=== PATIENT | male | born 1980 | race African-American/Black ===

== ENCOUNTER 2019-03-25 20:41 | Emergency (ER) | payer SELFPAY ==
[~2019-03-25] VITALS: Ht 180.3 cm; Wt 72.6 kg
[2019-03-25] MEDS ORDERED: MULTIVIT INFUSN,ADULT 4,VIT K 10 ML, THIAMINE INJ 100 MG, FOLIC ACID INJ 1 MG in IV NOR... IV ONE (21:30)
[2019-03-25] MEDS ORDERED: LIDOCAINE 1% Multi-Dose 20 ML VIAL. INJ ONE (21:30)
--- NOTE | 2019-03-25 21:41 | RAD ---
Exam: Bilateral hands 3 views INDICATION: Laceration TECHNIQUE: Frontal, lateral and oblique views of the right and left hand Comparisons: None FINDINGS: Left hand: Bone mineralization and development are normal. No acute or healed fractures. Soft tissues are unremarkable. Joint spaces are well-maintained. Right hand: Soft tissue irregularity along the palmar aspect of the metatarsal heads. Evaluation of the fine osseous detail is limited secondary to overlying bandages. No acute or healed fractures are seen. Joint spaces are well-maintained. IMPRESSION: 1. Soft tissue irregularity along the palmar aspect of the right hand at the level of the metatarsal heads likely relating to laceration. No underlying osseous abnormality or radiopaque foreign body is identified. Limitations as above. 2. No acute osseous abnormality of the left hand. Electronically signed by: Dyana Queen MD (03/25/2019 9:38 PM) [facility]
[2019-03-25 21:42] LABS: BILIRUBIN,URINE NEGATIVE (NEG); CLARITY,URINE CLEAR; COLOR,URINE YELLOW; NITRITE,URINE NEGATIVE (NEG); PROTEIN,URINE NEGATIVE (NEG-TRACE); UROBILINOGEN,URINE 0.2 mg/dL (0.2 mg/dL)
[2019-03-25 21:48] LABS: HYALINE CASTS, URINE MANY /HPF; SQUAMOUS EPITHELIAL CELL,UR OCC /LPF
[2019-03-25 21:50] LABS: BACTERIA,URINE 0 /HPF (0-FEW); RBC,URINE 0 /HPF (0-2)
[2019-03-25 21:51] LABS: BARBITURATES NEG (NEG); BENZODIAZEPINES NEG (NEG); CANNABINOIDS POS (NEG); COCAINE NEG (NEG); METHADONE NEG (NEG); OPIATES NEG (NEG); PHENCYCLIDINE POS (NEG)
[2019-03-25 21:52] LABS: AMPHETAMINE/METHAMPHETAMINE NEG (NEG)
[2019-03-25 21:55] LABS: BASO # 0.1 x10^3/uL (0.0-0.2); BASO % 1 % (0-3); EOS % 0 % (0-3); HEMATOCRIT 37.4 % (39.0-53.0); HEMOGLOBIN 12.9 g/dL (13.0-17.5); LYMPH % 17 % (24-48); MEAN CORPUSCULAR HEMOGLOBIN 29 pg (25-35); MEAN CORPUSCULAR HGB CONC 34 g/dL (31-37); MEAN CORPUSCULAR VOLUME 85 fL (79-100); MONO # 1.1 x10^3/uL (0.0-1.1); MONO % 9 % (0-9); NEUT # 8.7 x10^3/uL (1.8-7.7); NEUT % 73 % (31-73); PLATELET COUNT 201 x10^3/uL (140-400); RED CELL DISTRIBUTION WIDTH 14.7 % (11.5-14.5); WHITE BLOOD COUNT 11.9 x10^3/uL (4.0-11.0)
[2019-03-25 22:05] LABS: CALCIUM 8.5 mg/dL (8.5-10.1); CREATININE 1.4 mg/dL (0.7-1.3); POTASSIUM 3.9 mmol/L (3.5-5.1)
[2019-03-25 22:09] LABS: ACETAMIN < 2 mcg/ml (10-30); ETHANOL 56 mg/dL (0-10); SALIC 4.9 mg/dL (2.8-20.0)
[2019-03-25 22:11] LABS: ALBUMIN 3.8 g/dL (3.4-5.0); ALBUMIN/GLOBULIN RATIO 1.5 (1.0-1.7); TOTAL BILIRUBIN 0.2 mg/dL (0.2-1.0); TOTAL PROTEIN 6.4 g/dL (6.4-8.2)
--- NOTE | 2019-03-25 22:58 | PHYS DOC ---
Past Medical History Past Medical History: No Pertinent History (JAYNA WAGONER APRN) Past Surgical History: Other Additional Past Surgical Histo: R KNEE AND HERNIA (JAYNA WAGONER APRN) Alcohol Use: Heavy Drug Use: Marijuana (JAYNA WAGONER APRN) Adult General Chief Complaint Chief Complaint: ALCOHOL INTOXICATION HPI HPI Patient is a 38 year old male who presents with bilateral hand lacerations. Patient arrives in the ED via EMS. He is intoxicated. He states he has been drinking Gin and smoking marijuana. He states he does not know what happened to cause him the lacerations but somebody was in the house when this lacerations occurred and the person left before the EMS got there. He will not give any further information. (JAYNA WAGONER APRN) Review of Systems Review of Systems Constitutional: Denies fever or chills [] Eyes: Denies change in visual acuity, redness, or eye pain [] HENT: Denies nasal congestion or sore throat [] Respiratory: Denies cough or shortness of breath [] Cardiovascular: No additional information not addressed in HPI [] GI: Denies abdominal pain, nausea, vomiting, bloody stools or diarrhea [] : Denies dysuria or hematuria [] Musculoskeletal: Denies back pain or joint pain [] Integument: Reports bilateral hand lacerations Neurologic: Denies headache, focal weakness or sensory changes [] Psych: Reports alcohol intoxication All other systems were reviewed and found to be within normal limits, except as documented in this note. (JAYNA WAGONER APRN) Current Medications Current Medications Current Medications Medications (Trade) Dose Ordered Sig/Nayely Start Time Stop Time Status Last Admin Dose Admin Diphtheria/ Tetanus/Acell Pertussis (Boostrix) 0.5 ml ONCE ONCE 03/25/19 23:30 03/25/19 23:31 DC 03/25/19 23:48 0.5 ML Lidocaine HCl (Lidocaine 1% 20ml Vial) 20 ml 1X ONCE 03/26/19 00:00 03/26/19 00:01 DC 03/25/19 23:54 20 ML Multivitamins 10 ml/Thiamine HCl 100 mg/Folic Acid 1 mg/Sodium Chloride 1,011.2 ml @ 1,000.088 mls/hr 1X ONCE 03/25/19 21:30 03/25/19 22:30 DC 03/25/19 21:17 1,000.088 MLS/HR (PATO MAGAÑA DO) Allergies Allergies Allergies Coded Allergies Type Severity Reaction Last Updated Verified No Known Drug Allergies 03/25/19 No (PATO MAGAÑA DO) Physical Exam Physical Exam Constitutional: Well developed, well nourished, no acute distress, non-toxic appearance. [] HENT: Normocephalic, atraumatic, bilateral external ears normal, oropharynx moist, no oral exudates, nose normal. [] Eyes: PERRLA, EOMI, conjunctiva normal, no discharge. [] Neck: Normal range of motion, no tenderness, supple, no stridor. [] Cardiovascular:Heart rate regular rhythm, no murmur [] Lungs & Thorax: Bilateral breath sounds clear to auscultation [] Abdomen: Bowel sounds normal, soft, no tenderness, no masses, no pulsatile masses. [] Skin: Warm, dry, right hand with two lacerations one on the right lateral hand approx. 5 cm, the other on the mid palm of the same hand approx. 8 cm, no obvious tendon involvement. Ful ROM to the right hand and fingers. Adequate radial, medial and ulnar sensation to the right hand. +2 right radial pulse. Left palmar eminence with a laceration approximately 4 cm long. There is no tendon involvement. Ful ROM to the left hand and fingers. Adequate radial, medial and ulnar sensation to the left hand. +2 left radial pulse. Back: No tenderness, no CVA tenderness. [] Extremities: No tenderness, no cyanosis, no clubbing, ROM intact, no edema. [] Neurologic: Alert and oriented X 3, normal motor function, normal sensory function, no focal deficits noted. [] Psychologic: Appears intoxicated (MUTUNGA,JAYNA WIRE COATING MACHINE OPERATOR) Current Patient Data Vital Signs Vital Signs Date Time Temp Pulse Resp B/P (MAP) Pulse Ox O2 Delivery O2 Flow Rate FiO2 03/26/19 00:30 80 18 121/97 (105) 100 Room Air 03/25/19 20:55 98.9 98.9 (PATO MAGAÑA DO) Lab Values Laboratory Tests Test 03/25/19 21:33 03/25/19 21:40 Urine Collection Type Unknown Urine Color Yellow Urine Clarity Clear Urine pH 5.0 Urine Specific [place] 1.015 Urine Protein Negative mg/dL (NEG-TRACE) Urine Glucose (UA) Negative mg/dL (NEG) Urine Ketones (Stick) Negative mg/dL (NEG) Urine Blood Negative (NEG) Urine Nitrite Negative (NEG) Urine Bilirubin Negative (NEG) Urine Urobilinogen Dipstick 0.2 mg/dL (0.2 mg/dL) Urine Leukocyte Esterase Trace (NEG) Urine RBC 0 /HPF (0-2) Urine WBC 5-10 /HPF (0-4) Urine Squamous Epithelial Cells Occ /LPF Urine Bacteria 0 /HPF (0-FEW) Urine Hyaline Casts Many /HPF Urine Mucus Marked /LPF Urine Opiates Screen Neg (NEG) Urine Methadone Screen Neg (NEG) Urine Barbiturates Neg (NEG) Urine Phencyclidine Screen Pos (NEG) Urine Amphetamine/Methamphetamine Neg (NEG) Urine Benzodiazepines Screen Neg (NEG) Urine Cocaine Screen Neg (NEG) Urine Cannabinoids Screen Pos (NEG) Urine Ethyl Alcohol Pos (NEG) White Blood Count 11.9 x10^3/uL (4.0-11.0) H Red Blood Count 4.40 x10^6/uL (4.30-5.70) Hemoglobin 12.9 g/dL (13.0-17.5) L Hematocrit 37.4 % (39.0-53.0) L Mean Corpuscular Volume 85 fL (79-100) Mean Corpuscular Hemoglobin 29 pg (25-35) Mean Corpuscular Hemoglobin Concent 34 g/dL (31-37) Red Cell Distribution Width 14.7 % (11.5-14.5) H Platelet Count 201 x10^3/uL (140-400) Neutrophils (%) (Auto) 73 % (31-73) Lymphocytes (%) (Auto) 17 % (24-48) L Monocytes (%) (Auto) 9 % (0-9) Eosinophils (%) (Auto) 0 % (0-3) Basophils (%) (Auto) 1 % (0-3) Neutrophils # (Auto) 8.7 x10^3/uL (1.8-7.7) H Lymphocytes # (Auto) 2.0 x10^3/uL (1.0-4.8) Monocytes # (Auto) 1.1 x10^3/uL (0.0-1.1) Eosinophils # (Auto) 0.0 x10^3/uL (0.0-0.7) Basophils # (Auto) 0.1 x10^3/uL (0.0-0.2) Sodium Level 144 mmol/L (136-145) Potassium Level 3.9 mmol/L (3.5-5.1) Chloride Level 106 mmol/L (98-107) Carbon Dioxide Level 22 mmol/L (21-32) Anion Gap 16 (6-14) H Blood Urea Nitrogen 12 mg/dL (8-26) Creatinine 1.4 mg/dL (0.7-1.3) H Estimated GFR (Cockcroft-Gault) 69.0 BUN/Creatinine Ratio 9 (6-20) Glucose Level 90 mg/dL (70-99) Calcium Level 8.5 mg/dL (8.5-10.1) Total Bilirubin 0.2 mg/dL (0.2-1.0) Aspartate Amino Transferase (AST) 20 U/L (15-37) Alanine Aminotransferase (ALT) 26 U/L (16-63) Alkaline Phosphatase 70 U/L (46-116) Total Protein 6.4 g/dL (6.4-8.2) Albumin 3.8 g/dL (3.4-5.0) Albumin/Globulin Ratio 1.5 (1.0-1.7) Salicylates Level 4.9 mg/dL (2.8-20.0) Salicylate Last Dose Date Salicylate Last Dose Time Acetaminophen Level < 2 mcg/ml (10-30) L Acetaminophen Last Dose Date Acetaminophen Last Dose Time Ethyl Alcohol Level 56 mg/dL (0-10) H Laboratory Tests 03/25/19 21:40 Laboratory Tests 03/25/19 21:40 (PATO MAGAÑA DO) EKG EKG [] (JAYNA WAGONER APRN) Radiology/Procedures Radiology/Procedures []PROCEDURE: HAND BILAT 3V Exam: Bilateral hands 3 views INDICATION: Laceration TECHNIQUE: Frontal, lateral and oblique views of the right and left hand Comparisons: None FINDINGS: Left hand: Bone mineralization and development are normal. No acute or healed fractures. Soft tissues are unremarkable. Joint spaces are well-maintained. Right hand: Soft tissue irregularity along the palmar aspect of the metatarsal heads. Evaluation of the fine osseous detail is limited secondary to overlying bandages. No acute or healed fractures are seen. Joint spaces are well-maintained. IMPRESSION: 1. Soft tissue irregularity along the palmar aspect of the right hand at the level of the metatarsal heads likely relating to laceration. No underlying osseous abnormality or radiopaque foreign body is identified. Limitations as above. 2. No acute osseous abnormality of the left hand. Electronically signed by: Dyana Grubbs MD (03/25/2019 9:38 PM) [facility] DICTATED and SIGNED BY: DYANA GRUBBS MD DATE: 03/25/192137 Laceration/Wound Repair Wound Location: Right mid palm and right lateral hand Wound's Depth, Shape: Horizontal Wound Length (cm): See physical exam Wound Explored: clean Irrigated w/ Saline (ccs): 1000 Betadine Prep?: Yes Anesthesia: 1% lidocaine Volume Anesthetic (ccs): Approximately 32 mL for both lacerations Wound Repaired With: Palm laceration was repaired with approximately 30 stitches (5 stitches internally), right lateral hand laceration was repaired with 3 stitches internally and 14 stitches externally. Both lacerations were repaired with Vicryl 4.0 and 5.0. The lacerations were covered with nonstick dressing. (JAYNA WAGONER APRN) Course & Med Decision Making Course & Med Decision Making Pertinent Labs and Imaging studies reviewed. (See chart for details) This is a 38-year-old male patient presenting to the ED today with bilateral hand lacerations, patient arrives in the ED intoxicated, does not know how the lacerations occurred. He was home until somebody else in the house when the laceration occurred. Alcohol level 56. Positive for cocaine, marijuana and PCP lacerations were repaired made me as noted in procedures. Wound care instructions and return precautions provided. Tetanus updated. (JAYNA WAGONER APRN) Dragon Disclaimer Dragon Disclaimer This electronic medical record was generated, in whole or in part, using a voice recognition dictation system. (JAYNA WAGONER APRN) Departure Departure Impression: Primary Impression: Hand laceration Additional Impressions: Phencyclidine (PCP) use disorder, mild, abuse Marijuana abuse ETOH abuse Laceration of left hand Disposition: 01 HOME, SELF-CARE Condition: STABLE Referrals: NO PCP (PCP) Follow-up with your doctor in 1-2 weeks as needed Patient Instructions: Alcohol Intoxication, Drug Abuse and Addiction-SportsMed, Laceration Care, Adult Additional Instructions: You have lacerations to right hand that will closed with dissolvable stitches, they will fall off on their own. Keep the areas clean and dry. Apply Neosporin to the laceration site twice a day. Monitor the areas for signs of infection including increased redness, warmth, yellow drainage and return to the ED for occur. Consider getting help for alcohol and drug use Attending Signature Attending Signature I have reviewed the PA/RECREATIONAL LEADER's note and plan of care. I was available for consultation as needed during the patient's visit in the emergency department. I agree with the clinical impression, plan, and disposition. (PATO MAGAÑA DO) Problem Qualifiers Primary Impression: Hand laceration Encounter type: initial encounter Foreign body presence: without foreign body Laterality: right Qualified Codes: S61.411A - Laceration without foreign body of right hand, initial encounter Additional Impressions: Laceration of left hand Encounter type: initial encounter Foreign body presence: without foreign body Qualified Codes: S61.412A - Laceration without foreign body of left hand, initial encounter YANAJAYNA CORNEJO WIRE COATING MACHINE OPERATOR Mar 25, 2019 22:58 PATO MAGAÑA DO Mar 26, 2019 02:07
[2019-03-25] MEDS ORDERED: DIPHTH,PERTUSS(ACELL),TET TOX 0.5 ML DISP.SYRIN. VAX IM ONE (23:30)
[2019-03-26] MEDS ORDERED: LIDOCAINE 1% Multi-Dose 20 ML VIAL. INJ ONE
[2019-03-26 00:30] VITALS: BP 121/97
== END 2019-03-26 00:45 | disposition home or self-care (01) ==
LOC: ER 20:41
DX: S61.412A Laceration without foreign body of left hand, initial encounter (principal); S61.411A Laceration without foreign body of right hand, initial encounter; F12.20 Cannabis dependence, uncomplicated; F16.10 Hallucinogen abuse, uncomplicated; F10.229 Alcohol dependence with intoxication, unspecified; Y90.2 Blood alcohol level of 40-59 mg/100 ml; X58.XXXA Exposure to other specified factors, initial encounter; Y93.89 Activity, other specified; Y92.009 Unspecified place in unspecified non-institutional (private) residence as the place of occurrence of the external cause; Y99.8 Other external cause status
CPT/HCPCS: 12005; 36415; 73130; 80053; 80307; 80329; 81001; 85025; 90471; 90715; 96365; 99285; G0480; J7030

== ENCOUNTER 2021-02-20 13:16 | Emergency (ER) | payer SELFPAY ==
[~2021-02-20] VITALS: Ht 182.9 cm; Wt 73.0 kg
[2021-02-20] MEDS ORDERED: MULTIVIT INFUSN,ADULT 4,VIT K 10 ML, THIAMINE INJ 100 MG, FOLIC ACID INJ 1 MG in IV NOR... IV SCH (13:30)
--- NOTE | 2021-02-20 13:40 | RAD ---
EXAMINATION: Chest radiograph. VIEWS: Single view COMPARISON: None INDICATION:40 years, Male, altered mental status. FINDINGS: Normal cardiomediastinal silhouette. No focal consolidation. No pleural effusion or pneumothorax. No acute osseous process. IMPRESSION: No acute cardiopulmonary process. Electronically signed by: Sai Melgar MD (02/20/2021 1:38 PM) [facility]
--- NOTE | 2021-02-20 13:50 | PHYS DOC ---
Past Medical History Past Medical History: No Pertinent History Past Surgical History: Other Additional Past Surgical Histo: R KNEE AND HERNIA Smoking Status: Current Every Day Smoker Alcohol Use: Heavy Drug Use: Marijuana General Adult EDM: Chief Complaint: ALCOHOL INTOXICATION HPI: HPI: Patient is a 40 year old male who presents with here by EMS from a hotel at the street with altered mental status, alcohol intoxication and drug use. EMS states initially patient was not speaking and very altered to them. Upon arrival patient is alert and oriented and speaking to nurses and laughing. He is calm and cooperative. He states he has been drinking gin today. EMS states that there was "Wet" seen in the hotel room. Patient denies any past medical history. He denies any pain. Review of Systems: Review of Systems: Constitutional: Denies fever or chills. [] Eyes: Denies change in visual acuity. [] HENT: Denies nasal congestion or sore throat. [] Respiratory: Denies cough or shortness of breath. [] Cardiovascular: Denies chest pain or edema. [] GI: Denies abdominal pain, nausea, vomiting, bloody stools or diarrhea. [] : Denies dysuria. [] Musculoskeletal: Denies back pain or joint pain. [] Integument: Denies rash. [] Neurologic: Denies headache, focal weakness or sensory changes. +AMS[] Endocrine: Denies polyuria or polydipsia. [] Lymphatic: Denies swollen glands. [] Psychiatric: Denies depression or anxiety. +Alcohol intoxication [] Heart Score: C/O Chest Pain: N/A HEART Score for Chest Pain: HEART Score for Chest Pain Response (Comments) Value History Slighlty/Non-Suspicious 0 ECG Normal 0 Age < 45 0 Risk Factors 1 or 2 Risk Factors 1 Troponin < Normal Limit 0 Total 1 Risk Factors: Risk Factors: DM, Current or recent (<one month) smoker, HTN, HLP, family history of CAD, obesity. Risk Scores: Score 0 - 3: 2.5% MACE over next 6 weeks - Discharge Home Score 4 - 6: 20.3% MACE over next 6 weeks - Admit for Clinical Observation Score 7 - 10: 72.7% MACE over next 6 weeks - Early Invasive Strategies Current Medications: Current Medications Medications (Trade) Dose Ordered Sig/Nayely Start Time Stop Time Status Last Admin Dose Admin Multivitamins 10 ml/Thiamine HCl 100 mg/Folic Acid 1 mg/Sodium Chloride 1,011.2 ml @ 1,000.088 mls/hr 1X ONCE 02/20/21 14:00 02/20/21 15:00 Sodium Chloride 1,000 ml @ 1,000 mls/hr Q1H 02/20/21 13:30 02/20/21 14:29 Allergies: Allergies: Allergies Coded Allergies Type Severity Reaction Last Updated Verified No Known Drug Allergies 03/25/19 No Physical Exam: PE: Constitutional: Well developed, well nourished, no acute distress, non-toxic appearance. [] HENT: Normocephalic, atraumatic, bilateral external ears normal, oropharynx moist, no oral exudates, nose normal. [] Eyes: PERRLA, EOMI, conjunctiva normal, no discharge. [] Neck: Normal range of motion, no tenderness, supple, no stridor. [] Cardiovascular:Heart rate regular rhythm, no murmur [] Lungs & Thorax: Bilateral breath sounds clear to auscultation [] Abdomen: Bowel sounds normal, soft, no tenderness, no masses, no pulsatile masses. [] Skin: Warm, dry, no erythema, no rash. [] Back: No tenderness, no CVA tenderness. [] Extremities: No tenderness, no cyanosis, no clubbing, ROM intact, no edema. [] Neurologic: Alert and oriented X 3, normal motor function, normal sensory function, no focal deficits noted. + Altered mental status due to alcohol intoxication [] Psychologic: Affect normal, judgement normal, mood normal. [] EKG: EK and read by Dr. Mathis is sinus rhythm and no STEMI [] Radiology/Procedures: Radiology/Procedures: [] Impression: [facility] [address] [place], [place] [id number] IMAGING REPORT Signed PATIENT: ANALISA RENE ACCOUNT: [id number] : 1980 LOCATION: ER AGE: 40 SEX: M EXAM STATUS: PRE ER ORD. PHYSICIAN: SONIA ZAZUETA APRN REASON: ams PROCEDURE: PORTABLE CHEST 1V EXAMINATION: Chest radiograph. VIEWS: Single view COMPARISON: None INDICATION:40 years, Male, altered mental status. FINDINGS: Normal cardiomediastinal silhouette. No focal consolidation. No pleural effusion or pneumothorax. No acute osseous process. IMPRESSION: No acute cardiopulmonary process. Electronically signed by: Inez Melgar MD (02/20/2021 1:38 PM) [facility] DICTATED and SIGNED BY: INEZ MELGAR MD DATE: 02/20/21 [id number] [facility] [address] [place] [address] IMAGING REPORT Signed PATIENT: ANALISA RENE ACCOUNT: [id number] : 1980 LOCATION: ER AGE: 40 SEX: M EXAM STATUS: PRE ER ORD. PHYSICIAN: SONIA ZAZUETA APRN REASON: AMS, etoh PROCEDURE: CT HEAD WO CONTRAST EXAM: Head CT without contrast. HISTORY: Altered mental status. TECHNIQUE: Computed tomographic images of the head were obtained without contrast. *One or more of the following individualized dose reduction techniques were utilized for this examination: 1. Automated exposure control. 2. Adjustment of the mA and/or kV according to patient size. 3. Use of iterative reconstruction technique. COMPARISON: None. FINDINGS: There is no acute or subacute extra-axial or intraparenchymal hemorrhage. There is no mass effect or midline shift. There is no hydrocephalus. The rodriguez-white matter differential pattern is intact. There is a cavum septum pellucidum et vergae. There is a small mucous retention cyst within the sphenoid sinus. There is ethmoid sinus mucosal thickening. The mastoid air cells are clear. There is no suspicious calvarial lesion. IMPRESSION: No acute intracranial findings. Electronically signed by: Marisa Underwood MD (02/20/2021 2:44 PM) [id number] DICTATED and SIGNED BY: MARISA UNDERWOOD MD DATE: 02/20/21 [id number] 0 Course & Med Decision Making: Course & Med Decision Making Pertinent Labs and Imaging studies reviewed. (See chart for details) See HPI. Alert and oriented x4. Patient is very intoxicated. Lungs are clear all station all lobes. Vital signs within normal limits. Skin pink warm and dry. PERRLA. Speaks in full clear sentences. Patient has had a couple liters of normal saline. He is eating lunch. He is now alert and oriented. States he is ready to go. Chest x-ray showed no acute findings. CT head showed no acute findings. Blood work unremarkable. [] Dragon Disclaimer: Dragon Disclaimer: This electronic medical record was generated, in whole or in part, using a voice recognition dictation system. Departure Departure Impression: Primary Impression: ETOH abuse Disposition: 01 HOME / SELF CARE / HOMELESS Condition: STABLE Referrals: NO PCP (PCP) Patient Instructions: Alcohol Intoxication, Drug Abuse and Addiction-SportsMed Additional Instructions: Follow-up with your primary care provider. Stop acute alcohol given drugs. SONIA ZAZUETA CLOCKMAKER Feb 20, 2021 13:50
[2021-02-20 13:57] LABS: BASO # 0.1 x10^3/uL (0.0-0.2); BASO % 1 % (0-3); EOS % 0 % (0-3); HEMATOCRIT 34.7 % (39.0-53.0); HEMOGLOBIN 11.3 g/dL (13.0-17.5); LYMPH # 1.2 x10^3/uL (1.0-4.8); LYMPH % 25 % (24-48); MEAN CORPUSCULAR HEMOGLOBIN 25 pg (25-35); MEAN CORPUSCULAR HGB CONC 33 g/dL (31-37); MEAN CORPUSCULAR VOLUME 77 fL (79-100); MONO # 0.4 x10^3/uL (0.0-1.1); MONO % 8 % (0-9); NEUT # 3.2 x10^3/uL (1.8-7.7); NEUT % 66 % (31-73); PLATELET COUNT 206 x10^3/uL (140-400); RED BLOOD COUNT 4.49 x10^6/uL (4.30-5.70); RED CELL DISTRIBUTION WIDTH 21.5 % (11.5-14.5); WHITE BLOOD COUNT 4.9 x10^3/uL (4.0-11.0)
[2021-02-20 14:06] LABS: GFR 100.7; POTASSIUM 3.8 mmol/L (3.5-5.1)
[2021-02-20 14:14] LABS: ALBUMIN 3.8 g/dL (3.4-5.0); ALBUMIN/GLOBULIN RATIO 1.1 (1.0-1.7); TOTAL BILIRUBIN 0.2 mg/dL (0.2-1.0); TOTAL PROTEIN 7.3 g/dL (6.4-8.2)
[2021-02-20] MEDS: IV NORMAL SALINE 1000ML BAG 1,000 ML IV SCH (14:15)
[2021-02-20] MEDS: MULTIVIT INFUSN,ADULT 4,VIT K 10 ML, THIAMINE INJ 100 MG, FOLIC ACID INJ 1 MG in IV NOR... IV ONE (14:44)
--- NOTE | 2021-02-20 14:47 | RAD ---
EXAM: Head CT without contrast. HISTORY: Altered mental status. TECHNIQUE: Computed tomographic images of the head were obtained without contrast. *One or more of the following individualized dose reduction techniques were utilized for this examina tion: 1. Automated exposure control. 2. Adjustment of the mA and/or kV according to patient size. 3. Use of iterative reconstruction technique. COMPARISON: None. FINDINGS: There is no acute or subacute extra-axial or intraparenchymal hemorrhage. There is no mass effect or midline shift. There is no hydrocephalus. The rodriguez-white matter differential pattern is intact. There is a cavum septum pellucidum et vergae. There is a small mucous retention cyst within the sphenoid sinus. There is ethmoid sinus mucosal thic kening. The mastoid air cells are clear. There is no suspicious calvarial lesion. IMPRESSION: No acute intracranial findings. Electronically signed by: Marisa Campbell MD (02/20/2021 2:44 PM) [id number]
[2021-02-20 14:49] LABS: ANISOCYTOSIS MOD; HYPOCHROMIA SLIGHT; MICROCYTOSIS SLIGHT; PLT ESTIMATE ADEQUATE (ADEQUATE); POIKILOCYTOSIS SLIGHT
[2021-02-20 16:46] VITALS: BP 132/87
[2021-02-20 17:00] LABS: BILIRUBIN,URINE NEGATIVE (NEG); CLARITY,URINE CLEAR; COLOR,URINE YELLOW; NITRITE,URINE NEGATIVE (NEG); PH,URINE 6.5 (<5.0-8.0); PROTEIN,URINE NEGATIVE (NEG-TRACE); UROBILINOGEN,URINE 0.2 mg/dL (0.2 mg/dL)
[2021-02-20 17:05] LABS: BACTERIA,URINE 0 /HPF (0-FEW); RBC,URINE 0 /HPF (0-2); WBC,URINE 0 /HPF (0-4)
[2021-02-20 17:16] LABS: BARBITURATES NEG (NEG); BENZODIAZEPINES NEG (NEG); CANNABINOIDS POS (NEG); COCAINE NEG (NEG); METHADONE NEG (NEG); OPIATES NEG (NEG); PHENCYCLIDINE POS (NEG)
[2021-02-20 17:25] LABS: AMPHETAMINE/METHAMPHETAMINE NEG (NEG)
== END 2021-02-20 17:03 | disposition home or self-care (01) ==
LOC: ER 13:16
DX: F10.229 Alcohol dependence with intoxication, unspecified (principal); Y90.8 Blood alcohol level of 240 mg/100 ml or more; R41.82 Altered mental status, unspecified; F17.200 Nicotine dependence, unspecified, uncomplicated
CPT/HCPCS: 36415; 70450; 71045; 80053; 80307; 81001; 83690; 84484; 85025; 93005; 96365; 96366; 99285; G0480; J3411; J3490; J7030